=== PATIENT | female | born 2000 | race Caucasian/White ===

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

== ENCOUNTER 2022-03-23 20:57 | Emergency (ER) | payer OTHER ==
[~2022-03-23] VITALS: Ht 160 cm; Wt 54.0 kg
[~2022-03-23 20:57] MED LIST: ACHD5005 PO
[2022-03-23 21:08] VITALS: BP 122/81
--- NOTE | 2022-03-23 21:33 | ED General ---
General Chief Complaint: Rect Problems Stated Complaint: 7 WEEKS , RECTAL BLEEDING Nursing Triage Note: PT AMB TO ED BY POV WITH C/O RECTAL BLEEDING. PT REPORTS SHE HAS HAD BRIGHT RED BLOOD ON THE TOILET PAPER WHEN SHE WIPES AFTER BM OVER THE LAST FEW MONTHS, WORSE SINCE BEING . DENIES PAIN OR BLOOD IN STOOL. PT IS APPROX 7 WKS . DENIES VAGINAL BLEEDING OR CRAMPING. Source of Information: Patient Exam Limitations: No Limitations History of Present Illness Date Seen by Provider: Mar 23, 2022 Time Seen by Provider: 21:18 Initial Comments -year-old female presents emergency department today for bright red blood per rectum. She is reportedly 7 to 8 weeks per dates with her last menstrual cycle was March 15. This is her first . She denies any vaginal bleeding. For last 3 months or so she does have bright red blood per rectum. This is painless with no diarrhea. She states is only when she wipes, no blood mixed with the stool in the stool. She does not have any rectal pain. No dark or tarry stools. No abdominal pain. No vaginal bleeding or hematuria. Allergies and Home Medications Allergies Coded Allergies: No Known Drug Allergies (Unverified , 03/06/21) Patient Home Medication List Home Medication List Reviewed: Yes Hydrocodone/Acetaminophen (Hydrocodone-Acetamin 5-325 mg) 1 Each Tablet, 1 EACH PO Q4-6 HOURS PRN for PAIN Prescribed by: JEFERSON CARDOZO on 03/06/21 0157 Review of Systems Review of Systems Constitutional: no symptoms reported EENTM: no symptoms reported Respiratory: no symptoms reported Cardiovascular: no symptoms reported Gastrointestinal: other (Bright red blood per rectum) Genitourinary: no symptoms reported Musculoskeletal: no symptoms reported Skin: no symptoms reported Psychiatric/Neurological: No Symptoms Reported Hematologic/Lymphatic: No Symptoms Reported Immunological/Allergic: no symptoms reported Past Zqzstev-Lvhzdu-Pcndln Hx Patient Social History Tobacco Use?: No Use of E-Cig and/or Vaping dev: No Substance use?: No Alcohol Use?: No Pt feels they are or have been: No Immunizations Up To Date Influenza Vaccine Up-to-Date: No; Not Current First/Initial COVID19 Vaccinat: JULY 2020 Second COVID19 Vaccination Av: JULY 2020 Third COVID19 Vaccination Date: JULY 2020 Past Medical History Surgeries: No Respiratory: No Cardiac: No Neurological: No Last Menstrual Period: Jan 30, 2022 Genitourinary: No Gastrointestinal: No Musculoskeletal: No Endocrine: No HEENT: No Cancer: No Psychosocial: No Integumentary: No Blood Disorders: No Family Medical History Reviewed Nursing Family Hx No Pertinent Family Hx Physical Exam Vital Signs Vital Signs - First Documented 03/23/22 21:08 Temp 36.9 Pulse 106 Resp 18 B/P (MAP) 122/81 (95) Pulse Ox 99 O2 Delivery Room Air Capillary Refill : Less Than 3 Seconds Height, Weight, BMI Height: '" Weight: lbs. oz. kg; 21.00 BMI Method: General Appearance: No Apparent Distress, WD/WN HEENT: Normal ENT Inspection, Pharynx Normal Neck: Full Range of Motion, Normal Inspection, Non Tender, Supple Respiratory: Chest Non Tender, Lungs Clear, Normal Breath Sounds, No Accessory Muscle Use, No Respiratory Distress Cardiovascular: Regular Rate, Rhythm, No Murmur, Normal Peripheral Pulses Gastrointestinal: Normal Bowel Sounds, No Organomegaly, No Pulsatile Mass, Non Tender, Soft Extremity: Normal Capillary Refill, Normal Inspection, Normal Range of Motion, Non Tender, No Pedal Edema Neurologic/Psychiatric: Alert, Oriented x3, No Motor/Sensory Deficits Progress/Results/Core Measures Suspected Sepsis SIRS Temperature: Pulse: 106 Respiratory Rate: 18 Blood Pressure 122 /81 Mean: 95 Results/Orders Vital Signs/I&O 03/23/22 21:08 Temp 36.9 Pulse 106 Resp 18 B/P (MAP) 122/81 (95) Pulse Ox 99 O2 Delivery Room Air Capillary Refill : Less Than 3 Seconds Blood Pressure Mean: 95 Departure Communication (Admissions) Patient is hemodynamically stable. She is asymptomatic. She has painless bright red blood per rectum. Forego rectal exam at this time as it is been pre sent for 3 months. There is no evidence of anemia. No dark tarry stools, diarrhea. No abdominal pain. She has no pain with defecation so I doubt this is a fissure. Most likely internal hemorrhoid. We will treat her conservatively with stool softeners and primary care follow-up. No evidence of threat to . Impression Primary Impression: Bright red blood per rectum Additional Impression: Qualified Codes: Z3A.01 - Less than 8 weeks gestation of Disposition: HOME, SELF-CARE Condition: Stable Departure-Patient Inst. Referrals: [facility] (PCP/Family) Primary Care Physician Patient Instructions: Bloody Stools, Adult (DC) Add. Discharge Instructions: Given that you have no pain I think you likely have internal hemorrhoids. Please use stool softener, MiraLAX. 1 capful dissolved in liquid twice a day. If this gives you diarrhea, use 1 capful daily. Return to the emergency department for any dizziness, lightheadedness or shortness of breath. Follow-up with your primary doctor for any nonemergent needs or if your symptoms persist as they currently are. All discharge instructions reviewed with patient and/or family. Voiced understanding. DEISI BARRIOS DO Mar 23, 2022 21:33
== END 2022-03-23 21:38 | disposition home or self-care (01) ==
LOC: EDUNIT# 20:57 → ER 20:58
DX: O20.9 Hemorrhage in early pregnancy, unspecified (principal); Z3A.01 Less than 8 weeks gestation of pregnancy
CPT/HCPCS: 99281

== ENCOUNTER 2022-10-19 14:08 | Outpatient (CLI) | payer OTHER, MEDICAID ==
[~2022-10-19] VITALS: Ht 164 cm; Wt 65.7 kg
[2022-10-19 15:08] LABS: CLARITY,URINE SLIGHTLY CLOUDY; COLOR,URINE YELLOW; GLUCOSE, URINE (UA) NEGATIVE (NEGATIVE); KETONES,URINE NEGATIVE (NEGATIVE); NITRITE,URINE NEGATIVE (NEGATIVE); PROTEIN,URINE 1+ (NEGATIVE)
[2022-10-19 15:09] LABS: BACTERIA,URINE LARGE /HPF; BILIRUBIN,URINE 1+ (NEGATIVE); LEUKOCYTE ESTERASE ,URINE 3+ (NEGATIVE); RBC,URINE 0-2 /HPF; WBC,URINE 25-50 /HPF
[2022-10-19 15:58] VITALS: BP 128/75
--- NOTE | 2022-10-20 08:25 | Physician Query-Final Dx ---
Clinic Account Progress/Dx Physician Query: Please give diagnosis Please include # weeks gestation Date of Service Oct 19, 2022 at 14:08 ,FebOct 20, 2022 08:25
== END 2022-10-19 16:07 | disposition home or self-care (01) ==
LOC: LDRP 14:08 → WSo 14:08
PROVIDERS: ATTEND Family Medicine
DX: Z34.93 Encounter for supervision of normal pregnancy, unspecified, third trimester (principal); Z3A.37 37 weeks gestation of pregnancy
CPT/HCPCS: 81000; 87088; G0463; 99213

== ENCOUNTER 2022-11-03 14:19 | Inpatient (IN) | payer OTHER, MEDICAID ==
[2022-11-03] VITALS (41 sets, daily range): BP systolic 107–155; BP diastolic 57–91
[~2022-11-03] VITALS: Ht 162.6 cm; Wt 67.4 kg
[2022-11-03 14:57] LABS: CLARITY,URINE CLEAR; COLOR,URINE YELLOW; GLUCOSE, URINE (UA) NEGATIVE (NEGATIVE); PROTEIN,URINE NEGATIVE (NEGATIVE)
[2022-11-03 14:58] LABS: AMORPHOUS SEDIMENT,UR FEW AMOR URATES /LPF; BACTERIA,URINE MODERATE /HPF; BILIRUBIN,URINE NEGATIVE (NEGATIVE); KETONES,URINE NEGATIVE (NEGATIVE); LEUKOCYTE ESTERASE ,URINE 2+ (NEGATIVE); NITRITE,URINE NEGATIVE (NEGATIVE); SQUAMOUS EPITHELIAL CELL,UR >50 /HPF
[2022-11-03] MEDS ORDERED: D5 LR 1,000 ML IV SOLN 1,000 ML IV SCH (15:15)
[2022-11-03] MEDS ORDERED: LACTATED RINGERS 1,000 ML 500 ML IV PRN (15:15)
[2022-11-03] MEDS ORDERED: MINERAL OIL 30 ML UDC TOP PRN (15:15)
[2022-11-03 15:34] LABS: BASOPHILS % (AUTO) 0 % (0-10); EOSINOPHILS # (AUTO) 0.1 10^3/uL (0.0-0.3); EOSINOPHILS % (AUTO) 1 % (0-10); HEMATOCRIT 33 % (35-52); HEMOGLOBIN 11.6 g/dL (11.5-16.0); LYMPHOCYTES # (AUTO) 1.4 X 10^3 (1.0-4.0); LYMPHOCYTES % (AUTO) 13 % (12-44); MEAN CORPUSCULAR HEMOGLOBIN 33 pg (25-34); MEAN CORPUSCULAR HGB CONC 35 g/dL (32-36); MEAN CORPUSCULAR VOLUME 95 fL (80-99); MEAN PLATELET VOLUME 10.1 fL (9.0-12.2); MONOCYTES # (AUTO) 0.7 X 10^3 (0.0-1.0); MONOCYTES % (AUTO) 7 % (0-12); NEUTROPHILS # (AUTO) 8.9 X 10^3 (1.8-7.8); NEUTROPHILS % (AUTO) 80 % (42-75); PLATELET COUNT 139 10^3/uL (130-400); WHITE BLOOD COUNT 11.1 10^3/uL (4.3-11.0)
[2022-11-03] MEDS ORDERED: fentaNYL 2 mcg/ml BUPIVA 0.125 100 ML ONE (15:37)
[2022-11-03] MEDS ORDERED: LACTATED RINGERS 1,000 ML 1,000 ML IV ONE (15:37)
[2022-11-03] MEDS ORDERED: ONDANSETRON INJECTION 4 MG/2 ML (SDV) IV PRN (17:15)
[2022-11-03] MEDS ORDERED: LACTATED RINGERS 1,000 ML 1,000 ML IV SCH (17:15)
[2022-11-03] MEDS ORDERED: METOCLOPRAMIDE INJ 10 MG/2 ML IV PRN (17:15)
[2022-11-03] MEDS ORDERED: diphenhydrAMINE INJ 50 MG/ML VIAL IV PRN (17:15)
[2022-11-03] MEDS ORDERED: fentaNYL 2 mcg/ml BUPIVA 0.125 100 ML EPI SCH (17:15)
[2022-11-03] MEDS ORDERED: NALOXONE 0.4 MG/ML 1 ML VIAL IV PRN ×2 (17:15)
--- NOTE | 2022-11-03 19:40 | History & Physical-OB ---
OB - Chief Complaint & HPI Date/Time Date of Admission: Date of Admission: Nov 03, 2022 at 15:00 Date seen by a Provider: Nov 03, 2022 Time Seen by a Provider: 17:25 Chief Complaint/History OB-Reason for Admission/Chief: Onset of Labor Hx : 1 Expected Date of Delivery: Nov 06, 2022 Gestational Age in Weeks: 39 Gestational Age in Days: 4 History of Labs A+, Ab neg, Rub Non Imm RPR/HIV/HepB/C NR Normal 1 hr GTT GBS Neg Allergies and Home Medications Allergies Coded Allergies: No Known Drug Allergies (Unverified , 03/06/21) Patient Home Medication List Home Medication List Reviewed: Yes No Active Prescriptions or Reported Meds OB - History Hx of Present Care: No Ultrasounds: Normal mid trimester US Obstetrical Complications: None Medical Complications: None Obstetrical History Hx : 1 Patient Past Medical History None Social History/Family History Alcohol Use: Denies Use Recreational Drug Use: No Smoking Cessation: Never smoker 2nd Hand Smoke Exposure: No Immunizations Influenza Vaccine Up-to-Date: No; Not Current First/Initial COVID19 Vaccine: JULY 2020 Second COVID19 Vaccination: JULY 2020 Third COVID19 Vaccination Date: JULY 2020 Tetanus Booster (TDap): Less than 5yrs Rubella: not immune RPR/VDRL: Negative GBS Status: Negative HBsAG: Negative OB - Admission Exam Physical Exam Vitals: Vital Signs 11/03/22 11/03/22 16:03 18:57 Temp 37.2 Pulse 72 Resp 18 B/P (MAP) 124/77 (93) Pulse Ox 98 O2 Delivery Room Air HEENT: NCAT Heart: Rhythm Normal Lungs: Clear Abdomen: Gravid Cervical Dilatation: 7cm Effacement: 100% Station: -1 Membranes: Intact Heart Rate: 140's Accelerations: Accelerations Present Short Term Variability: Present Coffee Maker Variability: Average (6-25) Contractions on Admission: < 5 Minutes Apart Intensity: Moderate Labs Laboratory Tests Test 11/03/22 14:35 11/03/22 15:10 Range/Units Urine Color YELLOW Urine Clarity CLEAR Urine pH 6.0 5-9 Urine Specific [place] 1.020 1.016-1.022 Urine Protein NEGATIVE NEGATIVE Urine Glucose (UA) NEGATIVE NEGATIVE Urine Ketones NEGATIVE NEGATIVE Urine Nitrite NEGATIVE NEGATIVE Urine Bilirubin NEGATIVE NEGATIVE Urine Urobilinogen 0.2 < = 1.0 MG/DL Urine Leukocyte Esterase 2+ H NEGATIVE Urine RBC (Auto) 3+ H NEGATIVE Urine RBC 5-10 H /HPF Urine WBC 10-25 H /HPF Urine Squamous Epithelial Cells >50 H /HPF Urine Crystals PRESENT H /LPF Urine Amorphous Sediment FEW MELINDA URATES H /LPF Urine Bacteria MODERATE H /HPF Urine Casts NONE /LPF Urine Mucus LARGE H /LPF Urine Culture Indicated YES White Blood Count 11.1 H 4.3-11.0 10^3/uL Red Blood Count 3.52 L 3.80-5.11 10^6/uL Hemoglobin 11.6 11.5-16.0 g/dL Hematocrit 33 L 35-52 % Mean Corpuscular Volume 95 80-99 fL Mean Corpuscular Hemoglobin 33 25-34 pg Mean Corpuscular Hemoglobin Concent 35 32-36 g/dL Red Cell Distribution Width 12.6 10.0-14.5 % Platelet Count 139 130-400 10^3/uL Mean Platelet Volume 10.1 9.0-12.2 fL Immature Granulocyte % (Auto) 0 % Neutrophils (%) (Auto) 80 H 42-75 % Lymphocytes (%) (Auto) 13 12-44 % Monocytes (%) (Auto) 7 0-12 % Eosinophils (%) (Auto) 1 0-10 % Basophils (%) (Auto) 0 0-10 % Neutrophils # (Auto) 8.9 H 1.8-7.8 X 10^3 Lymphocytes # (Auto) 1.4 1.0-4.0 X 10^3 Monocytes # (Auto) 0.7 0.0-1.0 X 10^3 Eosinophils # (Auto) 0.1 0.0-0.3 10^3/uL Basophils # (Auto) 0.0 0.0-0.1 10^3/uL Immature Granulocyte # (Auto) 0.0 0.0-0.1 10^3/uL Syphilis Total Antibody Negative Negative OB - Assessment/Plan/Diagnosis Assessment Assessment: active labor Admission Dx Third Trimester 39 Week gestation Admission Status: Inpatient Order (span 2 midnights) Reason for Inpatient Admission: Labor and post care Plan Other Plan 22 yo G1 @ 39.4 wga here in active labor Plan - GBS neg - Expectant management ISHMAEL MOSES MD Nov 03, 2022 19:40
[2022-11-03] MEDS ORDERED: OXYTOCIN DRIP PRE-MIX 500 ML IV ONE (20:09)
[2022-11-03] MEDS ORDERED: OXYTOCIN DRIP PRE-MIX 500 ML IV SCH (20:15)
[2022-11-03] MEDS ORDERED: LIDOCAINE 2% w/EPI 1:200,000 20 ML VIAL ONE (20:51)
[2022-11-03] MEDS: OXYTOCIN DRIP PRE-MIX 500 ML IV SCH ×2 (21:39→22:05)
[2022-11-03] MEDS ORDERED: CATHETER FLUSH 10 ML SYR IV SCH (22:00)
--- NOTE | 2022-11-03 22:07 | OB Labor & Delivery Record ---
Vag Delivery Note Vag Delivery Note Date of Delivery: 11/03/22 Preoperative Diagnosis: Jennifer Arora is a (22 /Para 1 / ,Gestational Age (wks)39.4 here in active labor Postoperative Diagnosis: Same Surgeon/Physician: ISHMAEL MOSES MD Refractory Grinder Operator: None Anesthesia: Epidural Delivery Type: @ 2132 Findings: Viable female , apgars 9/9, weight 7#2, 3240 grams Lacerations: 1st degree perineal, left labial laceration Intact placenta with 3 vessel cord. No nuchal cord, body cord or shoulder dystocia Estimated Blood Loss: 200 ml Complications: None Condition: Stable Description of Procedure: The patient is a 22 year old female who presented in active labor. She was admitted and informed consent was obtained. Her labor course was unremarkable. She progressed to complete dilatation and began to push. She was then set up for delivery. The infant's head was delivered atraumatically in the JOSE R position. The shoulders and remainder of the infant's body were then delivered without difficulty. Upon delivery, the infant was vigorous and placed on maternal chest and the mouth and nares were bulb suctioned. After a 3 min delay cord was doubly clamped and cut by FOB and the remained on maternal chest. An intact placenta with 3-vessel cord delivered via [place] and there was found to be minimal bleeding.~ Vigorous fundal massage was performed and the fundus was found to be firm. IV oxytocin was given. Examination of the vagina and perineum revealed a 1st degree perineal and left labial laceration repaired in the usual fashion with 3-0 vicryl rapide suture. Following the repair, sponge, instrument and needle counts were correct. Mom and baby were both in stable condition in the labor suite. Vitals - Labs Vital Signs - I&O Vital Signs Date Time Temp Pulse Resp B/P (MAP) Pulse Ox O2 Delivery O2 Flow Rate FiO2 11/03/22 20:00 72 18 107/60 (76) 98 Room Air 11/03/22 19:45 72 18 107/60 (76) 98 Room Air 11/03/22 19:30 69 18 107/57 (74) 98 Room Air 11/03/22 19:15 70 18 112/69 (83) 98 Room Air 11/03/22 18:57 72 18 124/77 (93) 98 Room Air 11/03/22 18:44 76 18 124/80 (95) 98 Room Air 11/03/22 18:30 71 18 117/71 (86) 98 Room Air 11/03/22 18:11 88 18 146/69 (94) 98 Room Air 11/03/22 18:08 83 18 121/64 (83) 97 Room Air 11/03/22 18:01 79 18 119/67 (84) 96 Room Air 11/03/22 17:56 83 18 117/67 (84) 97 Room Air 11/03/22 17:51 77 18 123/70 (87) 97 Room Air 11/03/22 17:46 89 18 121/84 (96) 97 Room Air 11/03/22 17:41 92 18 124/70 (88) 97 Room Air 11/03/22 17:36 77 18 118/66 (83) 97 Room Air 11/03/22 17:32 87 18 125/67 (86) 97 Room Air 11/03/22 17:27 78 18 125/65 (85) 97 Room Air 11/03/22 17:18 92 18 125/75 (92) 97 Room Air 11/03/22 17:15 77 18 129/66 (87) Room Air 11/03/22 17:12 81 18 143/70 (94) 98 Room Air 11/03/22 17:09 88 18 128/80 (96) Room Air 11/03/22 17:07 83 18 134/77 (96) 98 Room Air 11/03/22 17:03 79 18 126/79 (95) 98 Room Air 11/03/22 17:00 82 18 124/78 (93) Room Air 11/03/22 16:57 92 18 137/86 (103) 99 Room Air 11/03/22 16:03 37.2 72 18 119/67 (84) Room Air 11/03/22 14:43 37.0 89 18 98 Room Air Labs Laboratory Tests 11/03/22 14:35: Urine Color YELLOW, Urine Clarity CLEAR, Urine pH 6.0, Urine Specific [place] 1.020, Urine Protein NEGATIVE, Urine Glucose (UA) NEGATIVE, Urine Ketones NEGATIVE, Urine Nitrite NEGATIVE, Urine Bilirubin NEGATIVE, Urine Urobilinogen 0.2, Urine Leukocyte Esterase 2+H, Urine RBC (Auto) 3+H, Urine RBC 5-10H, Urine WBC 10-25H, Urine Squamous Epithelial Cells >50H, Urine Crystals PRESENTH, Urine Amorphous Sediment FEW MELINDA URATESH, Urine Bacteria MODERATEH, Urine Casts NONE, Urine Mucus LARGEH, Urine Culture Indicated YES 11/03/22 15:10: White Blood Count 11.1H, Red Blood Count 3.52L, Hemoglobin 11.6, Hematocrit 33L, Mean Corpuscular Volume 95, Mean Corpuscular Hemoglobin 33, Mean Corpuscular Hemoglobin Concent 35, Red Cell Distribution Width 12.6, Platelet Count 139, Mean Platelet Volume 10.1, Immature Granulocyte % (Auto) 0, Neutrophils (%) (Auto) 80H, Lymphocytes (%) (Auto) 13, Monocytes (%) (Auto) 7, Eosinophils (%) (Auto) 1, Basophils (%) (Auto) 0, Neutrophils # (Auto) 8.9H, Lymphocytes # (Auto) 1.4, Monocytes # (Auto) 0.7, Eosinophils # (Auto) 0.1, Basophils # (Auto) 0.0, Immature Granulocyte # (Auto) 0.0, Syphilis Total Antibody Negative ISHMAEL MOSES MD Nov 03, 2022 22:07
[2022-11-03] MEDS ORDERED: MEASLES, MUMPS, RUBELLA VACCINE (MMR) SQ ONE (22:15)
[2022-11-03] MEDS ORDERED: BENZOCAINE/MENTHOL (DERMOPLAST) 56 ML CAN TP PRN (22:15)
[2022-11-03] MEDS ORDERED: DIBUCAINE 1% OINTMENT 28 GM TUBE TOP PRN (22:15)
[2022-11-04] VITALS: BP 129/87
[2022-11-04 00:15] VITALS: BP 125/83
[2022-11-04] MEDS: ACETAMINOPHEN 500 MG TABLET PO SCH ×3 (00:31→17:45)
[2022-11-04] MEDS: WITCH HAZEL(TUCKS) 40 EA JAR TOP PRN (00:31)
[2022-11-04] MEDS: IBUPROFEN 600 MG TABLET PO SCH ×4 (00:31→20:34)
[2022-11-04 03:50] VITALS: BP 123/77
[2022-11-04] MEDS ORDERED: METHYLERGONOVINE INJ 0.2 MG/ML AMP IM ONE ×2 (04:45→07:50)
[2022-11-04] MEDS ORDERED: LIDOCAINE 2% w/EPI 1:200,000 20 ML VIAL INJ PRN (04:45)
[2022-11-04 05:52] LABS: BASOPHILS # (AUTO) 0.1 10^3/uL (0.0-0.1); BASOPHILS % (AUTO) 0 % (0-10); EOSINOPHILS % (AUTO) 0 % (0-10); HEMATOCRIT 31 % (35-52); LYMPHOCYTES # (AUTO) 1.4 10^3/uL (1.0-4.0); LYMPHOCYTES % (AUTO) 9 % (12-44); MEAN CORPUSCULAR HEMOGLOBIN 33 pg (25-34); MEAN CORPUSCULAR HGB CONC 36 g/dL (32-36); MEAN CORPUSCULAR VOLUME 92 fL (80-99); MEAN PLATELET VOLUME 10.2 fL (9.0-12.2); MONOCYTES # (AUTO) 1.2 10^3/uL (0.0-1.0); MONOCYTES % (AUTO) 8 % (0-12); NEUTROPHILS # (AUTO) 12.2 10^3/uL (1.8-7.8); NEUTROPHILS % (AUTO) 82 % (42-75); PLATELET COUNT 133 10^3/uL (130-400)
[2022-11-04] MEDS ORDERED: CATHETER FLUSH 10 ML SYR IV SCH (06:00)
[2022-11-04 08:00] VITALS: BP 125/74
[2022-11-04] MEDS: FERROUS SULFATE 325 MG (IRON) TABLET PO SCH (08:55)
[2022-11-04] MEDS: DOCUSATE SODIUM 100 MG CAPSULE PO SCH ×2 (08:56→20:34)
[2022-11-04] MEDS: PRENATAL VITAMIN TABLET PO SCH (08:56)
--- NOTE | 2022-11-04 10:55 | Anesthesia-Regional Post-Op ---
Regional Patient Condition Mental Status: Alert, Oriented x3 Circulation: Same as Pre-Op Headache: Absent Sensation: Full Recovery Motor Block: Absent Post Op Complications Complications None Follow Up Care/Instructions Patient Instructions None needed. Anesthesia/Patient Condition Patient is doing well, no complaints, stable vital signs, no apparent adverse anesthesia problems. No complications reported per nursing. NINO STAHL CRNA Nov 04, 2022 10:55
--- NOTE | 2022-11-04 11:46 | Postpartum Progress Note ---
Note Note Day # 1 Subjective: Patient is without complaints. Ambulating, voiding. Tolerating a regular diet without nausea or vomiting. Normal lochia. Pain is well controlled with oral pain medications. Bottle feeding. Vital Signs 11/03/22 11/04/22 21:30 03:50 Temp 36.0 Pulse 71 Resp 18 B/P (MAP) 123/77 (92) Pulse Ox 97 O2 Delivery Room Air O2 Flow Rate 15.00 Physical Exam: General - Alert and oriented, no apparent distress Abdomen - Soft, appropriately tender to palpation, non-distended, fundus firm at umbilicus Extremities - no edema, negative Chanelle's bilaterally Assessment: post- day # 1, status post spontaneous vaginal delivery following spontaneous labor. Recovering well, hemodynamically stable Plan: Routine care. Encourage ambulation. Plan for discharge tomorrow. Vitals - Labs Vital Signs - I&O Vital Signs Date Time Temp Pulse Resp B/P (MAP) Pulse Ox O2 Delivery O2 Flow Rate FiO2 11/04/22 03:50 36.0 71 18 123/77 (92) 97 Room Air 11/04/22 00:15 85 18 125/83 (97) Room Air 11/04/22 00:00 85 18 129/87 (101) Room Air 11/03/22 23:45 77 18 125/89 (101) Room Air 11/03/22 23:30 96 18 137/89 (105) Room Air 11/03/22 23:15 80 18 137/90 (106) Room Air 11/03/22 23:00 36.6 73 18 137/91 (106) Room Air 11/03/22 22:45 71 18 135/87 (103) Room Air 11/03/22 22:30 75 18 127/83 (98) Room Air 11/03/22 22:15 86 18 127/80 (96) Room Air 11/03/22 22:00 75 18 126/80 (95) Room Air 11/03/22 21:45 90 18 119/81 (94) Room Air 11/03/22 21:30 18 100 Non Rebreather 15.00 11/03/22 21:15 67 18 132/90 (104) 98 Room Air 11/03/22 21:00 75 18 155/91 (112) 98 Room Air 11/03/22 20:45 75 18 146/84 (104) 98 Room Air 11/03/22 20:30 67 18 128/74 (92) 97 Room Air 11/03/22 20:15 36.2 65 18 125/84 (98) 98 Room Air 11/03/22 20:00 70 18 122/65 (84) 98 Room Air 11/03/22 19:45 72 18 107/60 (76) 98 Room Air 11/03/22 19:30 69 18 107/57 (74) 98 Room Air 11/03/22 19:15 70 18 112/69 (83) 98 Room Air 11/03/22 18:57 72 18 124/77 (93) 98 Room Air 11/03/22 18:44 76 18 124/80 (95) 98 Room Air 11/03/22 18:30 71 18 117/71 (86) 98 Room Air 11/03/22 18:11 88 18 146/69 (94) 98 Room Air 11/03/22 18:08 83 18 121/64 (83) 97 Room Air 11/03/22 18:01 79 18 119/67 (84) 96 Room Air 11/03/22 17:56 83 18 117/67 (84) 97 Room Air 11/03/22 17:51 77 18 123/70 (87) 97 Room Air 11/03/22 17:46 89 18 121/84 (96) 97 Room Air 11/03/22 17:41 92 18 124/70 (88) 97 Room Air 11/03/22 17:36 77 18 118/66 (83) 97 Room Air 11/03/22 17:32 87 18 125/67 (86) 97 Room Air 11/03/22 17:27 78 18 125/65 (85) 97 Room Air 11/03/22 17:18 92 18 125/75 (92) 97 Room Air 11/03/22 17:15 77 18 129/66 (87) Room Air 11/03/22 17:12 81 18 143/70 (94) 98 Room Air 11/03/22 17:09 88 18 128/80 (96) Room Air 11/03/22 17:07 83 18 134/77 (96) 98 Room Air 11/03/22 17:03 79 18 126/79 (95) 98 Room Air 11/03/22 17:00 82 18 124/78 (93) Room Air 11/03/22 16:57 92 18 137/86 (103) 99 Room Air 11/03/22 16:03 37.2 72 18 119/67 (84) Room Air 11/03/22 14:43 37.0 89 18 98 Room Air I & O 11/04/22 07:00 Intake Total 1000 ml Balance 1000 ml Labs Laboratory Tests 11/03/22 14:35: Urine Color YELLOW, Urine Clarity CLEAR, Urine pH 6.0, Urine Specific [place] 1.020, Urine Protein NEGATIVE, Urine Glucose (UA) NEGATIVE, Urine Ketones NEGATIVE, Urine Nitrite NEGATIVE, Urine Bilirubin NEGATIVE, Urine Urobilinogen 0.2, Urine Leukocyte Esterase 2+H, Urine RBC (Auto) 3+H, Urine RBC 5-10H, Urine WBC 10-25H, Urine Squamous Epithelial Cells >50H, Urine Crystals PRESENTH, Urine Amorphous Sediment FEW MELINDA URATESH, Urine Bacteria MODERATEH, Urine Casts NONE, Urine Mucus LARGEH, Urine Culture Indicated YES 11/03/22 15:10: White Blood Count 11.1H, Red Blood Count 3.52L, Hemoglobin 11.6, Hematocrit 33L, Mean Corpuscular Volume 95, Mean Corpuscular Hemoglobin 33, Mean Corpuscular Hemoglobin Concent 35, Red Cell Distribution Width 12.6, Platelet Count 139, Mean Platelet Volume 10.1, Immature Granulocyte % (Auto) 0, Neutrophils (%) (Auto) 80H, Lymphocytes (%) (Auto) 13, Monocytes (%) (Auto) 7, Eosinophils (%) (Auto) 1, Basophils (%) (Auto) 0, Neutrophils # (Auto) 8.9H, Lymphocytes # (Auto) 1.4, Monocytes # (Auto) 0.7, Eosinophils # (Auto) 0.1, Basophils # (Auto) 0.0, Immature Granulocyte # (Auto) 0.0, Syphilis Total Antibody Negative 11/04/22 05:33: White Blood Count 15.0H, Red Blood Count 3.31L, Hemoglobin 11.0L, Hematocrit 31L , Mean Corpuscular Volume 92, Mean Corpuscular Hemoglobin 33, Mean Corpuscular Hemoglobin Concent 36, Red Cell Distribution Width 12.2, Platelet Count 133, Mean Platelet Volume 10.2, Immature Granulocyte % (Auto) 1, Neutrophils (%) (Auto) 82H, Lymphocytes (%) (Auto) 9L, Monocytes (%) (Auto) 8, Eosinophils (%) (Auto) 0, Basophils (%) (Auto) 0, Neutrophils # (Auto) 12.2H, Lymphocytes # (Auto) 1.4, Monocytes # (Auto) 1.2H, Eosinophils # (Auto) 0.0, Basophils # (Auto) 0.1, Immature Granulocyte # (Auto) 0.1, Neutrophils % (Manual) ANIBAL MATOS DO Nov 04, 2022 11:46
[2022-11-04 16:00] VITALS: BP 129/83
[2022-11-04 20:36] VITALS: BP 112/57
[2022-11-05 00:13] VITALS: BP 122/56
[2022-11-05] MEDS: ACETAMINOPHEN 500 MG TABLET PO SCH ×3 (00:15→11:41)
[2022-11-05] MEDS: IBUPROFEN 600 MG TABLET PO SCH ×2 (04:36→11:39)
[2022-11-05 06:20] VITALS: BP 120/58
[2022-11-05] MEDS: FERROUS SULFATE 325 MG (IRON) TABLET PO SCH (08:45)
[2022-11-05] MEDS: DOCUSATE SODIUM 100 MG CAPSULE PO SCH (08:45)
[2022-11-05] MEDS: PRENATAL VITAMIN TABLET PO SCH (08:45)
[2022-11-05] MEDS: WITCH HAZEL(TUCKS) 40 EA JAR TOP PRN (08:45)
[2022-11-05] MEDS ORDERED: FERR325T24 PO (10:12)
[2022-11-05] MEDS ORDERED: DOCU100C37 PO (10:12)
[2022-11-05] MEDS ORDERED: PNV1TABL67 PO (10:12)
[2022-11-05] MEDS ORDERED: IBUP-844 PO (10:12)
--- NOTE | 2022-11-05 10:13 | Discharge Summary ---
Discharge Inst-[facility] Depart Medications New, Converted or Re-Newed RX: Transmitted to Pharmacy New Medications: Docusate Sodium (Docusate Sodium) 100 Mg Capsule 100 MG PO BID, #14 CAP Ferrous Sulfate (Ferosul) 325 Mg (65 Mg Iron) Tablet 325 MG PO DAILY, #30 TAB Ibuprofen (Ibu) 600 Mg Tablet 600 MG PO Q6H, #30 TAB Pnv with Ca,No.72/Iron/FA (Pnv Plus Multivit Tab) 27 Mg Iron-1 Mg Tablet 1 EA PO DAILY@0700, #30 TAB Follow Up/Instructions Goal/Follow Up: 6 weeks with Melodie Activity Activity: Activity as Tolerated Driving Instructions: You May Drive NO SMOKING: NO SMOKING Nothing Inside Vagina: No Douching, No [place], No Tampons Diet Discharge Diet: No Restrictions Symptoms to Report to : Swelling Increased, Pain Increased, Fever Over 101 Degrees F ISHMAEL MOSES MD Nov 05, 2022 10:13
--- NOTE | 2022-11-05 10:14 | Discharge Summary ---
Diagnosis/Chief Complaint Date of Admission Nov 03, 2022 at 15:00 Date of Discharge 11/05/22 Admission Diagnosis Admission Diagnosis Third Trimester 39 week gestation Discharge Diagnosis Uncomplicated Discharge Summary-Simple/Stand Procedures Epidural placement Discharge Physical Examination Allergies: Coded Allergies: No Known Drug Allergies (Unverified , 03/06/21) Vitals & I&Os Vital Sign - Last 12Hours Date Time Temp Pulse Resp B/P (MAP) Pulse Ox O2 Delivery O2 Flow Rate FiO2 11/05/22 06:20 36.0 60 18 120/58 (78) 98 Room Air 11/03/22 21:30 15.00 General Appearance: Alert, Oriented X3, No Acute Distress Respiratory: Clear to Auscultation, Normal Air Movement Cardiovascular: Regular Rate, No Murmurs Abdominal: Normal Bowel Sounds, Soft, Other (Fundus firm and below umbilicus) Extremities: No Edema, No Tenderness/Swelling Neuro: Normal Speech Hospital Course See final discharge diagnosis. Discussion & Recommendations 22 yo G1 now P1 delivered term female via @ 39 weeks Discharge Condition at discharge stable Instructions to patient/family Please see electronic discharge instructions given to patient. Discharge Medications Reviewed and agree with Discharge Medication list on patient's Discharge Instruction sheet ISHMAEL MOSES MD Nov 05, 2022 10:14
[2022-11-05] MEDS ORDERED: MEASLES, MUMPS, RUBELLA VACCINE (MMR) ONE (11:34)
== END 2022-11-05 13:20 | disposition home or self-care (01) | DRG 807 ==
LOC: WSo 14:19 → LDRP 14:19 → WSo 15:00 → LDRP 15:00
PROVIDERS: ADMIT Family Medicine; ATTEND Family Medicine
PROC: 10E0XZZ Delivery of Products of Conception, External Approach (ICD-10-PCS; principal; 2022-11-03)
PROC: 0HQ9XZZ Repair Perineum Skin, External Approach (ICD-10-PCS; 2022-11-03)
PROC: 0UQMXZZ Repair Vulva, External Approach (ICD-10-PCS; 2022-11-03)
DX: O70.0 First degree perineal laceration during delivery (principal); Z37.0 Single live birth; Z3A.39 39 weeks gestation of pregnancy; Z23 Encounter for immunization
CPT/HCPCS: 36415; 81000; 85007; 85025; 85027; 86780; 86850; 86900; 86901; 87088; 90707; 99212